=== PATIENT | male | born 1990 | race African-American/Black ===

== ENCOUNTER 2019-07-08 17:06 | Emergency (ER) | payer MEDICAID, SELFPAY ==
[~2019-07-08] VITALS: Ht 185.4 cm; Wt 117.5 kg
[2019-07-08] MEDS ORDERED: tylenol (17:16)
[2019-07-08] MEDS ORDERED: BENZOCAINE 20% GEL 9GM TUBE (ANBESOL MAX STRENGTH) TOP ONE (21:45)
[2019-07-08] MEDS ORDERED: KETOROLAC 30 MG/ML VIAL (J1885) IM ONE (21:45)
[2019-07-08] MEDS ORDERED: LIDOCAINE 2% W/ EPINEPHRINE 1.7 ML DENTAL INJ SM ONE (21:45)
[2019-07-08] MEDS ORDERED: AUGMENTIN 875 MG TAB PO ONE (21:45)
[2019-07-08] MEDS ORDERED: AUGM875T28 PO (22:15)
[2019-07-08] MEDS ORDERED: IBUP80TA PO (22:15)
[2019-07-08 22:16] VITALS: BP 139/85
== END 2019-07-08 22:27 | disposition home or self-care (01) ==
LOC: M ED 17:06
DX: K02.9 Dental caries, unspecified (principal); R68.84 Jaw pain; H92.01 Otalgia, right ear
CPT/HCPCS: 96372; 99283; J1885

== ENCOUNTER 2019-10-13 22:11 | Emergency (ER) | payer MEDICAID, OTHER, SELFPAY ==
[~2019-10-13] VITALS: Ht 185.4 cm; Wt 122.8 kg
[~2019-10-13 22:11] MED LIST: AUGM875T28 PO; IBUP80TA PO; tylenol
[2019-10-13 22:12] VITALS: BP 139/82
[2019-10-13] MEDS ORDERED: BC F1POW2 PO (22:16)
[2019-10-13] MEDS ORDERED: DEPA1TAB3 PO (22:16)
[2019-10-13] MEDS ORDERED: AUGM875T28 PO (22:38)
[2019-10-13] MEDS ORDERED: IBUPROFEN 800 MG TAB PO ONE (22:45)
[2019-10-13] MEDS ORDERED: AUGMENTIN 875 MG TAB PO ONE (22:45)
[2019-10-13] MEDS ORDERED: BENZOCAINE 20% GEL 9GM TUBE (ANBESOL MAX STRENGTH) TOP ONE (22:45)
[2019-10-13] MEDS ORDERED: ACETAMINOPHEN 500 MG TAB PO ONE (22:45)
== END 2019-10-13 22:59 | disposition home or self-care (01) ==
LOC: M ED 22:11
DX: K04.7 Periapical abscess without sinus (principal); F12.20 Cannabis dependence, uncomplicated; Z79.899 Other long term (current) drug therapy; Z79.82 Long term (current) use of aspirin

== ENCOUNTER 2020-01-16 22:41 | Inpatient (IN) | payer MEDICAID, OTHER ==
[~2020-01-16 22:41] MED LIST changes: +BC F1POW2 PO; +DEPA1TAB3 PO
[2020-01-17] MEDS ORDERED: traZODone 50 MG TAB ONE ×2 (03:35→20:30)
[2020-01-17] MEDS ORDERED: traZODone 50 MG TAB As Ordered ONE ×2 (03:35→20:30)
[2020-01-17] MEDS ORDERED: DIVALPROEX 250 MG TAB ONE ×3 (03:35→20:30)
[2020-01-17] MEDS ORDERED: PALIPERIDONE 3 MG ER TAB (INVEGA) ONE ×2 (03:35→20:30)
[2020-01-17] MEDS ORDERED: PALIPERIDONE 3 MG ER TAB (INVEGA) As Ordered ONE ×2 (08:23→20:30)
[2020-01-17] MEDS ORDERED: DIVALPROEX 250 MG TAB As Ordered ONE ×3 (08:23→20:29)
[2020-01-17] MEDS ORDERED: ACETAMINOPHEN TAB 650MG DOSE (2X325MG) As Ordered ONE (14:53)
[2020-01-17] MEDS ORDERED: ACETAMINOPHEN TAB 650MG DOSE (2X325MG) ONE (14:53)
[2020-01-18] MEDS ORDERED: PALIPERIDONE 3 MG ER TAB (INVEGA) ONE (08:23)
[2020-01-18] MEDS ORDERED: DIVALPROEX 250 MG TAB ONE ×2 (08:23→15:19)
[2020-01-18] MEDS ORDERED: PALIPERIDONE 3 MG ER TAB (INVEGA) As Ordered ONE (08:23)
[2020-01-18] MEDS ORDERED: DIVALPROEX 250 MG TAB As Ordered ONE ×2 (08:24→15:19)
[2020-03-01 13:13] LABS: BASO # 0.1 10^3/uL (0.0-0.2); EOS # 0.1 10^3/uL (0.0-0.5); EOS % 1.6 % (0.0-3.0); HEMATOCRIT 37.9 % (42.0-52.0); HEMOGLOBIN 13.1 g/dl (13.5-17.5); LYMPH # 2.4 10^3/uL (1.5-5.0); LYMPH % 38.9 % (24.0-44.0); MEAN CORPUSCULAR HEMOGLOBIN 28.7 pg (27.0-33.0); MEAN CORPUSCULAR HGB CONC 34.6 g/dl (32.0-36.5); MEAN CORPUSCULAR VOLUME 83.1 fl (80.0-96.0); MONO # 0.4 10^3/uL (0.0-0.8); MONO % 6.9 % (0.0-5.0); NEUTROPHILS # 3.1 10^3/uL (1.5-8.5); NEUTROPHILS % 51.4 % (36.0-66.0); PLATELET COUNT, AUTOMATED 289 10^3/uL (150-450); RED BLOOD COUNT 4.56 10^6/uL (4.30-6.10); WHITE BLOOD COUNT 6.1 10^3/uL (4.0-10.0)
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
[2020-04-10 12:58] LABS: ACETAMINOPHEN LEVEL < 2.0 UG/ML (10.0-30.0); ALBUMIN 4.1 GM/DL (3.2-5.2); ALT/SGPT 40 U/L (12-78); AMPHETAMINES LEVEL URINE NEGATIVE (NEGATIVE); BARBITURATES URINE NEGATIVE (NEGATIVE); BENZODIAZEPINES URINE NEGATIVE (NEGATIVE); BILIRUBIN,DIRECT 0.1 MG/DL (0.0-0.2); BILIRUBIN,TOTAL 0.5 MG/DL (0.2-1.0); BLOOD UREA NITROGEN 14 MG/DL (7-18); CALCIUM LEVEL 8.8 MG/DL (8.5-10.1); CANNABINOIDS URINE POSITIVE (NEGATIVE); CARBON DIOXIDE LEVEL 26 MEQ/L (21-32); CHLORIDE LEVEL 109 MEQ/L (98-107); COCAINE METABOLITE URINE NEGATIVE (NEGATIVE); CREATININE FOR GFR 1.14 MG/DL (0.70-1.30); ETHYL ALCOHOL (ETHANOL) < 0.003 % (0.000-0.010); GLOMERULAR FILTRATION RATE > 60.0 (>60); GLUCOSE, FASTING 94 MG/DL (70-100); METHADONE URINE NEGATIVE (NEGATIVE); OPIATES URINE NEGATIVE (NEGATIVE); PHENCYCLIDINE URINE NEGATIVE (NEGATIVE); POTASSIUM SERUM 3.9 MEQ/L (3.5-5.1); SALICYLATE LEVEL 3.3 MG/DL (5.0-30.0); SODIUM LEVEL 141 MEQ/L (136-145); TOTAL PROTEIN 7.8 GM/DL (6.4-8.2); VALPROIC ACID (DEPAKOTE) < 3.0 UG/ML (50.0-100.0)
== END 2020-01-18 14:45 | disposition home or self-care (01) | DRG 750 ==
LOC: M ED 22:41 → M PSY 23:30
PROVIDERS: ADMIT Psychiatry & Neurology Psychiatry; ATTEND Psychiatry & Neurology Psychiatry
DX: F25.9 Schizoaffective disorder, unspecified (principal); F39 Unspecified mood [affective] disorder; R45.851 Suicidal ideations; F12.10 Cannabis abuse, uncomplicated; F43.10 Post-traumatic stress disorder, unspecified

== ENCOUNTER → 2020-06-17 | Outpatient (CLI) | payer MEDICAID, OTHER ==
[2020-06-17 14:08] LABS: BASO # 0.1 10^3/uL (0.0-0.2); BASO % 1.5 % (0.0-1.0); EOS # 0.2 10^3/uL (0.0-0.5); EOS % 3.9 % (0.0-3.0); HEMATOCRIT 43.3 % (42.0-52.0); HEMOGLOBIN 14.8 g/dl (13.5-17.5); LYMPH # 2.4 10^3/uL (1.5-5.0); LYMPH % 44.3 % (24.0-44.0); MEAN CORPUSCULAR HEMOGLOBIN 29.5 pg (27.0-33.0); MEAN CORPUSCULAR HGB CONC 34.2 g/dl (32.0-36.5); MEAN CORPUSCULAR VOLUME 86.3 fl (80.0-96.0); MONO # 0.5 10^3/uL (0.0-0.8); MONO % 9.6 % (0.0-5.0); NEUTROPHILS # 2.2 10^3/uL (1.5-8.5); NEUTROPHILS % 40.5 % (36.0-66.0); PLATELET COUNT, AUTOMATED 234 10^3/uL (150-450); RED BLOOD COUNT 5.02 10^6/uL (4.30-6.10); WHITE BLOOD COUNT 5.4 10^3/uL (4.0-10.0)
[2020-06-17 14:38] LABS: ALBUMIN 4.2 GM/DL (3.2-5.2); ALT/SGPT 36 U/L (12-78); BILIRUBIN,DIRECT 0.1 MG/DL (0.0-0.2); BILIRUBIN,TOTAL 0.5 MG/DL (0.2-1.0); BLOOD UREA NITROGEN 12 MG/DL (7-18); CALCIUM LEVEL 9.6 MG/DL (8.5-10.1); CARBON DIOXIDE LEVEL 31 MEQ/L (21-32); CHLORIDE LEVEL 104 MEQ/L (98-107); CHOLESTEROL LEVEL 184 MG/DL (<200); CHOLESTEROL RISK RATIO 3.607 (<5); CREATININE FOR GFR 1.09 MG/DL (0.70-1.30); GLOMERULAR FILTRATION RATE > 60.0 (>60); GLUCOSE, FASTING 62 MG/DL (70-100); HDL CHOLESTEROL 51 MG/DL (>40); LDL CHOLESTEROL 103 MG/DL (<100); NON-HDL-C 133 MG/DL; POTASSIUM SERUM 4.7 MEQ/L (3.5-5.1); SODIUM LEVEL 139 MEQ/L (136-145); TOTAL PROTEIN 7.7 GM/DL (6.4-8.2); TRIGLYCERIDES LEVEL 149 MG/DL (<150)
[2020-06-17 14:52] LABS: HEMOGLOBIN A1c 4.9 %
== END ==
LOC: M PLALAB 11:49
PROVIDERS: ATTEND Psychiatry & Neurology Psychiatry
DX: F33.2 Major depressive disorder, recurrent severe without psychotic features (principal); F41.1 Generalized anxiety disorder; F43.10 Post-traumatic stress disorder, unspecified

== ENCOUNTER → 2020-08-27 | Outpatient (REF) | payer OTHER | LOC: M LAB REF 19:05 | PROVIDERS: ATTEND Family Medicine | DX: L08.9 Local infection of the skin and subcutaneous tissue, unspecified (principal) ==

== ENCOUNTER 2021-04-07 12:47 | Emergency (ER) | payer MEDICAID, OTHER ==
[~2021-04-07] VITALS: Ht 182.9 cm; Wt 105.0 kg
[2021-04-07 12:47] VITALS: BP 123/81
--- OUTSIDE RECORDS SUMMARY | 2021-04-07 12:54 | CCD ---
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 Name Role Phone Thomas, M Christopher PA-C Unavailable Unavailable Thomas, M Christopher PA-C Unavailable Unavailable Thomas, M Christopher PA-C Unavailable Unavailable Thomas, M Christopher PA-C Unavailable Unavailable Thomas, M Christopher PA-C Unavailable Unavailable Thomas, M Christopher PA-C Unavailable Unavailable Thomas, M Christopher PA-C Unavailable Unavailable Thomas, M Christopher PA-C Unavailable Unavailable Thomas, M Christopher PA-C Unavailable Unavailable Thomas, M Christopher PA-C Unavailable Unavailable Thomas, M Christopher PA-C Unavailable Unavailable Thomas, M Christopher PA-C Unavailable Unavailable Thomas, M Christopher PA-C Unavailable Unavailable Thomas, M Christopher PA-C Unavailable Unavailable Thomas, M Christopher PA-C Unavailable Unavailable Thomas, M Christopher PA-C Unavailable Unavailable Thomas, M Christopher PA-C Unavailable Unavailable Thomas, M Christopher PA-C Unavailable Unavailable Thomas, M Christopher PA-C Unavailable Unavailable Thomas, M Christopher PA-C Unavailable Unavailable Thomas, M Christopher PA-C Unavailable Unavailable Thomas, M Christopher PA-C Unavailable Unavailable Thomas, M Christopher PA-C Unavailable Unavailable Thomas, M Christopher PA-C Unavailable Unavailable Thomas, M Christopher PA-C Unavailable Unavailable Thomas, M Christopher PA-C Unavailable Unavailable Re-disclosure Warning The records that you are about to access may contain information from federally-assisted alcohol or drug abuse programs. If such information is present, then the following federally mandated warning applies: This information has been disclosed to you from records protected by federal confidentiality rules (42 CFR part 2). The federal rules prohibit you from making any further disclosure of this information unless further disclosure is expressly permitted by the written consent of the person to whom it pertains or as otherwise permitted by 42 CFR part 2. A general authorization for the release of medical or other information is NOT sufficient for this purpose. The Federal rules restrict any use of the information to criminally investigate or prosecute any alcohol or drug abuse patient.The records that you are about to access may contain highly sensitive health information, the redisclosure of which is protected by Article 27-F of the [facility] Public Health law. If you continue you may have access to information: Regarding HIV / AIDS; Provided by facilities licensed or operated by the [facility] Office of Mental Health; or Provided by the [facility] Office for People With Developmental Disabilities. If such information is present, then the following [facility] mandated warning applies: This information has been disclosed to you from confidential records which are protected by state law. State law prohibits you from making any further disclosure of this information without the specific written consent of the person to whom it pertains, or as otherwise permitted by law. Any unauthorized further disclosure in violation of state law may result in a fine or nursing home sentence or both. A general authorization for the release of medical or other information is NOT sufficient authorization for further disc losure. Encounters Encounter Providers Location Date Indications Data Source(s ) Outpatient 01/25/2021 03:59:37 PM EDT - 021 04:15:28 PM EDT [facility] ([facility]) [place] [address] [address] 10/07/2020 12:00:00 AM EDT eCW1 ([facility]) Outpatient Attender: Benjamin Thomas PA-C 09/17/2020 12:20:51 PM EDT - 09/17/2020 12:27:42 PM EDT [facility] ([facility]) [place] [address] [address] 09/16/2020 12:00:00 AM EDT eCW1 ([facility]) [place] [address] [address] 08/26/2020 12:00:00 AM EDT eCW1 ([facility]) [place] [address] [address] 07/20/2020 12:00:00 AM EST eCW1 ([facility]) [place] [address] [address] 03/11/2020 12:00:00 AM EDT eCW1 ([facility]) Immunizations Vaccine Date Status Description Data Source(s) COVID-19 VACCINE Pfizer 12/03/2020 12:00:00 AM EDT completed [facility] Vaccine Series Complete: YESThis Data wa s Submitted to [facility] Via [facility]. COVID-19 VACCINE Pfizer 11/12/2020 12:00:00 AM EDT completed [facility] Vaccine Series Complete: NOThis Data was Submitted to [facility]. Medications Medication Brand Name Start Date Product Form Dose Route Admi nistrative Instructions Pharmacy Instructions Status Indications Reaction Description Data Source(s) 250 mg 08/12/2020 12:00:00 AM EST tablet,delayed release (DR/EC) 90 TAKE ONE TABLET BY MOUTH THREE TIMES A DAY TAKE ONE TABLET BY MOUTH THREE TIMES A DAY SOLD: 08/18/2020 [facility] quetiapine 50 MG Oral Tablet QUETIAPINE FUMARATE 08/12/2020 12:0 0:00 AM EST tablet 30 TAKE ONE TABLET BY MOUTH EVERY D AY TAKE ONE TABLET BY MOUTH EVERY DAY SOLD: 08/18/2020 [facility] 50 mg 08/12/2020 12:00:00 AM EST tablet 30 TAKE ONE TABLET BY MOUTH EVERY DAY TAKE ONE TABLET BY MOUTH EVERY DAY SOLD: 10/10/2020 [facility] quetiapine 50 MG Oral Tablet QUETIAPINE FUMARATE 08/12/2020 12:0 0:00 AM EST tablet 30 TAKE ONE TABLET BY MOUTH EVERY D AY TAKE ONE TABLET BY MOUTH EVERY DAY SOLD: 10/10/2020 [facility] 50 mg 08/12/2020 12:00:00 AM EST tablet 30 TAKE ONE TABLET BY MOUTH EVERY DAY TAKE ONE TABLET BY MOUTH EVERY DAY SOLD: 08/18/2020 [facility] 250 mg 08/12/2020 12:00:00 AM EST tablet,delayed release (DR/EC) 90 TAKE ONE TABLET BY MOUTH THREE TIMES A DAY TAKE ONE TABLET BY MOUTH THREE TIMES A DAY SOLD: 10/10/2020 [facility] 5-325 mg 05/11/2020 12:00:00 AM EST tablet 12 TAKE ONE TABLET BY MOUTH EVERY 6 HOURS NEEDED FOR PAIN MAXIMUM DAILY DOSE = 4 TABLETS TAKE ONE TABLET BY MOUTH EVERY 6 HOURS NEEDED FOR PAIN MAXIMUM DAILY DOSE = 4 TABLETS SOLD: 05/11/2020 [facility] 800 mg 05/11/2020 12:00:00 AM EST tablet 20 TAKE ONE TABLET BY MOUTH EVERY 6 HOURS NEEDED FOR PAIN TAKE ONE TABLET BY MOUTH EVERY 6 HOURS A S NEEDED FOR PAIN SOLD: 05/11/2020 [facility] 5-325 mg 05/07/2020 12:00:00 AM EST tablet 16 TAKE ONE TABLET BY MOUTH EVERY 6 HOURS NEEDED FOR PAIN MAXIMUM DAILY DOSE = 4 TABLETS TAKE ONE TABLET BY MOUTH EVERY 6 HOURS NEEDED FOR PAIN MAXIMUM DAILY DOSE = 4 TABLETS SOLD: 05/07/2020 [facility] 500 mg 05/07/2020 12:00:00 AM EST tablet 21 TAKE ONE TABLET BY MOUTH EVERY 8 HOURS UNTIL GONE TAKE ONE TABLET BY MOUTH EVERY 8 HOURS UNTIL GONE SOLD : 05/07/2020 [facility] 0.12 % 05/07/2020 12:00:00 AM EST mouthwash 473 RINSE MOUTH WITH 15MLS FOR 30 SECONDS THEN SPIT OUT FOUR TIMES A DAY RINSE MOUTH WITH 15MLS FOR 30 SECONDS THEN SPIT OUT FOUR TIMES A DAY SOLD: 05/07/2020 [facility] Sertraline 50 MG Oral Tablet SERTRALINE HCL 04/16/2020 12:00:00 AM EST tablet 30 TAKE ONE TABLET BY MOUTH EVERY DAY TAKE ONE TABL ET BY MOUTH EVERY DAY SOLD: 04/16/2020 [facility] 800 mg 02/27/2020 12:00:00 AM EDT tablet 20 TAKE ONE TABLET BY MOUTH EVERY 6 HOURS NEEDED FOR PAIN TAKE ONE TABLET BY MOUTH EVERY 6 HOURS A S NEEDED FOR PAIN SOLD: 02/27/2020 [facility] 5-325 mg 02/27/2020 12:00:00 AM EDT tablet 16 TAKE ONE TABLET BY MOUTH EVERY 6 HOURS NEEDED FOR PAIN MAXIMUM DAILY DOSE = 4 TABLETS TAKE ONE TABLET BY MOUTH EVERY 6 HOURS NEEDED FOR PAIN MAXIMUM DAILY DOSE = 4 TABLETS SOLD: 02/27/2020 [facility] 0.12 % 02/27/2020 12:00:00 AM EDT mouthwash 473 SWISH 15 MLS IN MOUTH FOR 30 SECONDS AND SPIT FOUR TIMES A DAY SWISH 15 MLS IN MOUTH FOR 30 SECONDS AND SPIT FOUR TIMES A DAY SOLD: 02/27/2020 [facility] 250 mg 02/20/2020 12:00:00 AM EDT tablet,delayed release (DR/EC) 90 TAKE ONE TABLET BY MOUTH THREE TIMES A DAY TAKE ONE TABLET BY MOUTH THREE TIMES A DAY SOLD: 02/25/2020 [facility] quetiapine 50 MG Oral Tablet QUETIAPINE FUMARATE 02/20/2020 12:0 0:00 AM EDT tablet 60 TAKE ONE TABLET BY MOUTH TWICE A DAY TAKE ONE TABLET BY MOUTH TWICE A DAY SOLD: 03/23/2020 [facility] 50 mg 02/20/2020 12:00:00 AM EDT tablet 30 TAKE ONE TABLET BY MOUTH EVERY DAY TAKE ONE TABLET BY MOUTH EVERY DAY SOLD: 06/03/2020 [facility] 250 mg 02/20/2020 12:00:00 AM EDT tablet,delayed release (DR/EC) 90 TAKE ONE TABLET BY MOUTH THREE TIMES A DAY TAKE ONE TABLET BY MOUTH THREE TIMES A DAY SOLD: 06/03/2020 [facility] 50 mg 02/20/2020 12:00:00 AM EDT tablet 30 TAKE ONE TABLET BY MOUTH EVERY DAY TAKE ONE TABLET BY MOUTH EVERY DAY SOLD: 02/25/2020 [facility] 250 mg 02/20/2020 12:00:00 AM EDT tablet,delayed release (DR/EC) 90 TAKE ONE TABLET BY MOUTH THREE TIMES A DAY TAKE ONE TABLET BY MOUTH THREE TIMES A DAY SOLD: 03/23/2020 [facility] quetiapine 50 MG Oral Tablet QUETIAPINE FUMARATE 02/20/2020 12:0 0:00 AM EDT tablet 60 TAKE ONE TABLET BY MOUTH TWICE A DAY TAKE ONE TABLET BY MOUTH TWICE A DAY SOLD: 06/03/2020 [facility] 50 mg 02/20/2020 12:00:00 AM EDT tablet 30 TAKE ONE TABLET BY MOUTH EVERY DAY TAKE ONE TABLET BY MOUTH EVERY DAY SOLD: 03/23/2020 [facility] quetiapine 50 MG Oral Tablet QUETIAPINE FUMARATE 02/20/2020 12:0 0:00 AM EDT tablet 60 TAKE ONE TABLET BY MOUTH TWICE A DAY TAKE ONE TABLET BY MOUTH TWICE A DAY SOLD: 02/25/2020 [facility] Insurance Providers Payer name Policy type / Coverage type Policy ID Covered democrat ID Covered democrat's relationship to bernstein Policy [employer] Plan Information Managed Care Darius P [id number] S [id number] ESCREEN [employer]OUNT emp [id number] Employee [id number] [employer] [id number] Self [id number] Medicaid P UNAVAILABLE S UNAVAILA BLE Medicaid Dental S UNAVAILABLE S UN AVAILABLE Medicaid Dental S [id number] S [id number] Managed Care Darius P [id number] S [id number] Medicaid S [id number] S [id number] MEDICAID [id number] SP [id number] SELF PAY ONLY [id number] SP [id number] DARIUS [id number] SP [id number] EMEDNY [id number] SP [id number] Problems, Conditions, and Diagnoses No Information Surgeries/Procedures Procedure Description Date Indications Data Source(s) Med: Derm 1% Lidocaine with Epinephrine Injection Intr adermally to marked areas 08/26/2020 12:00:00 AM EDT eCW1 ([facility]) Results ID Date Data Source [id number] 01/25/2021 04:15:00 PM EDT JUAN FMT Name Value Range Interpretation Code Description Data Elvia rce(s) Supporting Document(s) SARS-CoV-2 RNA Resp Ql TIAN+probe NOT DETECTED [facility] This lab was ordered by SU dangelo and reported by SU Colin. Procedure Social History Code Duration Value Status Description Data Source(s ) Smoking 09/14/2020 12:00:00 AM EDT Never Smoker completed Never S moker eCW1 ([facility]) Smoking 09/14/2020 12:00:00 AM EDT Never Smoker completed Never S moker eCW1 ([facility]) Smoking 09/14/2020 12:00:00 AM EDT Never Smoker completed Never S moker eCW1 ([facility]) Smoking 07/20/2020 12:00:00 AM EST Never Smoker completed Never S moker eCW1 ([facility]) Vital Signs ID Date Data Source UNK Name Value Range Interpretation Code Description Data Source(s) Body weight 233.4 [lb_av] 233.4 [lb_av] eCW1 ([facility]) Body height 72 [in_i] 72 [in_i] eCW1 ([facility]) Body mass index (BMI) [Ratio] 31.65 kg/m2 31.65 kg/m2 eCW1 ([facility]) Respiratory rate 18 /min 18 /min eCW1 ([facility]) Body temperature 97.9 [degF] 97.9 [degF] eCW1 ( [facility]) Systolic blood pressure 122 mm[Hg] 122 mm[Hg] e CW1 ([facility]) Diastolic blood pressure 82 mm[Hg] 82 mm[Hg] eCW1 ([facility]) Heart rate 84 /min 84 /min eCW1 ([facility]) Body weight 231.0 [lb_av] 231.0 [lb_av] eCW1 ([facility]) Body height 72 [in_i] 72 [in_i] eCW1 ([facility]) Body mass index (BMI) [Ratio] 31.33 kg/m2 31.33 kg/m2 eCW1 ([facility]) Heart rate 80 /min 80 /min eCW1 ([facility]) Respiratory rate 18 /min 18 /min eCW1 ([facility]) Body temperature 97.7 [degF] 97.7 [degF] eCW1 ( [facility]) Systolic blood pressure 122 mm[Hg] 122 mm[Hg] e CW1 ([facility]) Diastolic blood pressure 78 mm[Hg] 78 mm[Hg] eCW1 ([facility]) Body weight 237 [lb_av] 237 [lb_av] eCW1 ([facility]) Body height 72 [in_i] 72 [in_i] eCW1 ([facility]) Body mass index (BMI) [Ratio] 32.14 kg/m2 32.14 kg/m2 eCW1 ([facility]) Heart rate 87 /min 87 /min eCW1 ([facility]) Respiratory rate 18 /min 18 /min eCW1 ([facility]) Body temperature 97.7 [degF] 97.7 [degF] eCW1 ( [facility]) Systolic blood pressure 128 mm[Hg] 128 mm[Hg] e CW1 ([facility]) Diastolic blood pressure 84 mm[Hg] 84 mm[Hg] eCW1 ([facility])
--- OUTSIDE RECORDS SUMMARY | 2021-04-07 13:41 | CCD ---
Author Author [facility] Organization [facility] Address Unknown Phone Unavailable Care Team Providers Care Investigative Writer Name Role Phone Thomas, M Christopher PA-C [...] is protected by Article 27-F of the [facility] Public Health law. If you continue you may have access to information: Regarding HIV / AIDS; Provided by facilities licensed or operated by the [facility] Office of Mental Health; or Provided by the [facility] Office for People With Developmental Disabilities. If such information is present, then the following [facility] mandated warning applies: This information has [...] law may result in a fine or mcc sentence or both. A general authorization for the release of medical or other information is NOT sufficient authorization for further disc losure. Encounters Encounter Providers Location Date Indications Data Source(s ) Outpatient 01/25/2021 03:59:37 PM EDT - 021 04:15:28 PM EDT [facility] ([facility]) Unknown [address] [place] [address] 10/07/2020 12:00:00 AM EDT eCW1 ([facility]) Outpatient Attender: Benjamin Thomas PA-C 09/17/2020 12:20:51 PM EDT - 09/17/2020 12:27:42 PM EDT [facility] ([facility]) Outpatient [address] [address] [address] 09/16/2020 12:00:00 AM EDT eCW1 ([facility]) Outpatient [address] [facility] [address] [address] 08/26/2020 12:00:00 AM EDT eCW1 ([facility]) Outpatient [address] [facility] [address] [address] 07/20/2020 12:00:00 AM EST eCW1 ([facility]) Unknown [address] [address] [address] 03/11/2020 12:00:00 AM EDT eCW1 ([facility]) Immunizations Vaccine Date Status Description Data Source(s) COVID-19 VACCINE Pfizer 12/03/2020 12:00:00 AM EDT completed [facility] Vaccine Series Complete: YESThis Data wa s Submitted to [facility] Via [employer]. COVID-19 VACCINE Pfizer 11/12/2020 12:00:00 AM EDT completed [facility] Vaccine Series Complete: NOThis Data was Submitted to [facility] [employer]. Medications Medication Brand Name Start Date Product [...] type / Coverage type Policy ID Covered constitution party ID Covered constitution party's relationship to bernstein Policy Bernstein Plan Information Managed Care Darius P [id number] S [id number] ES[employer] emp [id number] Employee [id number] [employer] [id number] Self [id number] Medicaid P UNAVAILABLE S UNAVAILA BLE Medicaid Dental S UNAVAILABLE S UN AVAILABLE Medicaid Dental S [id number] S [id number] Managed Care Darius P [id number] S [id number] Medicaid S [id number] S [id number] MEDICAID [id number] SP [id number] SELF PAY ONLY [id number] SP [id number] DARIUS [id number] SP [id number] EMEDNY [id number] SP [id number] Problems, Conditions, and Diagnoses No Information Surgeries/Procedures Procedure Description Date Indications Data Source(s) Med: Derm 1% Lidocaine with Epinephrine Injection Intr adermally to marked areas 08/26/2020 12:00:00 AM EDT eCW1 ([facility]) Results ID Date Data Source [id number] 01/25/2021 04:15:00 PM EDT JUAN FVA Name Value Range Interpretation Code Description Data Elvia rce(s) Supporting Document(s) SARS-CoV-2 RNA Resp Ql TIAN+probe NOT DETECTED [facility] This lab was ordered by SU dangelo and reported by SU Colin. Procedure Social History Code Duration Value Status Description Data Source(s ) Smoking 09/14/2020 12:00:00 AM EDT Never Smoker completed Never S moker eCW1 ([facility]) Smoking 09/14/2020 12:00:00 AM EDT Never Smoker completed Never S moker eCW1 ([facility]) Smoking 09/14/2020 12:00:00 AM EDT Never Smoker completed Never S moker eCW1 ([facility]) Smoking 07/20/2020 12:00:00 AM EST Never Smoker completed Never S moker eCW1 ([facility]) Vital Signs ID Date Data Source UNK Name Value Range Interpretation Code Description Data Source(s) Body weight 233.4 [lb_av] 233.4 [lb_av] eCW1 ([facility]) Body height 72 [in_i] 72 [in_i] eCW1 ([facility]) Body mass index (BMI) [Ratio] 31.65 kg/m2 31.65 kg/m2 eCW1 ([facility]) Respiratory rate 18 /min 18 /min eCW1 ([facility]) Body temperature 97.9 [degF] 97.9 [degF] eCW1 ( [facility]) Systolic blood pressure 122 mm[Hg] 122 mm[Hg] e CW1 ([facility]) Diastolic blood pressure 82 mm[Hg] 82 mm[Hg] eCW1 ([facility]) Heart rate 84 /min 84 /min eCW1 ([facility]) Body weight 231.0 [lb_av] 231.0 [lb_av] eCW1 ([facility]) Body height 72 [in_i] 72 [in_i] eCW1 ([facility]) Body mass index (BMI) [Ratio] 31.33 kg/m2 31.33 kg/m2 eCW1 ([facility]) Heart rate 80 /min 80 /min eCW1 ([facility]) Respiratory rate 18 /min 18 /min eCW1 ([facility]) Body temperature 97.7 [degF] 97.7 [degF] eCW1 ( [facility]) Systolic blood pressure 122 mm[Hg] 122 mm[Hg] e CW1 ([facility]) Diastolic blood pressure 78 mm[Hg] 78 mm[Hg] eCW1 ([facility]) Body weight 237 [lb_av] 237 [lb_av] eCW1 ([facility]) Body height 72 [in_i] 72 [in_i] eCW1 ([facility]) Body mass index (BMI) [Ratio] 32.14 kg/m2 32.14 kg/m2 eCW1 ([facility]) Heart rate 87 /min 87 /min eCW1 ([facility]) Respiratory rate 18 /min 18 /min eCW1 ([facility]) Body temperature 97.7 [degF] 97.7 [degF] eCW1 ( [facility]) Systolic blood pressure 128 mm[Hg] 128 mm[Hg] e CW1 ([facility]) Diastolic blood pressure 84 mm[Hg] 84 mm[Hg] eCW1 ([facility])
[2021-04-07 14:35] LABS: VALPROIC ACID (DEPAKOTE) < 3.0 UG/ML (50.0-100.0)
[2021-04-07 14:48] LABS: AMPHETAMINES LEVEL URINE NEGATIVE (NEGATIVE); BARBITURATES URINE NEGATIVE (NEGATIVE); BENZODIAZEPINES URINE NEGATIVE (NEGATIVE); CANNABINOIDS URINE POSITIVE (NEGATIVE); COCAINE METABOLITE URINE NEGATIVE (NEGATIVE); METHADONE URINE NEGATIVE (NEGATIVE); OPIATES URINE NEGATIVE (NEGATIVE); PHENCYCLIDINE URINE NEGATIVE (NEGATIVE)
[2021-04-07 15:05] LABS: HEMATOCRIT 42.7 % (42.0-52.0); HEMOGLOBIN 14.6 g/dl (13.5-17.5); MEAN CORPUSCULAR HEMOGLOBIN 30.1 pg (27.0-33.0); MEAN CORPUSCULAR HGB CONC 34.2 g/dl (32.0-36.5); PLATELET COUNT, AUTOMATED 284 10^3/uL (150-450); RED BLOOD COUNT 4.85 10^6/uL (4.30-6.10); WHITE BLOOD COUNT 5.9 10^3/uL (4.0-10.0)
[2021-04-07 15:20] LABS: ACETAMINOPHEN LEVEL < 2.0 UG/ML (10.0-30.0); ALT/SGPT 33 U/L (12-78); BILIRUBIN,DIRECT 0.2 MG/DL (0.0-0.2); BILIRUBIN,TOTAL 0.5 MG/DL (0.2-1.0); BLOOD UREA NITROGEN 12 MG/DL (7-18); CALCIUM LEVEL 9.8 MG/DL (8.5-10.1); CARBON DIOXIDE LEVEL 27 MEQ/L (21-32); CHLORIDE LEVEL 105 MEQ/L (98-107); CREATININE FOR GFR 1.16 MG/DL (0.70-1.30); ETHYL ALCOHOL (ETHANOL) < 0.003 % (0.000-0.010); GLOMERULAR FILTRATION RATE > 60.0 (>60); GLUCOSE, FASTING 83 MG/DL (70-100); POTASSIUM SERUM 4.5 MEQ/L (3.5-5.1); SALICYLATE LEVEL 4.8 MG/DL (5.0-30.0); SODIUM LEVEL 139 MEQ/L (136-145); TOTAL PROTEIN 7.6 GM/DL (6.4-8.2)
== END 2021-04-07 15:52 | disposition home or self-care (01) ==
LOC: M ED 12:47
DX: Z73.3 Stress, not elsewhere classified (principal); F43.10 Post-traumatic stress disorder, unspecified; F33.9 Major depressive disorder, recurrent, unspecified; F17.200 Nicotine dependence, unspecified, uncomplicated; Z79.899 Other long term (current) drug therapy

== ENCOUNTER 2021-08-25 07:07 | Emergency (ER) | payer OTHER ==
[~2021-08-25] VITALS: Ht 185.4 cm; Wt 101.8 kg
[2021-08-25 07:08] VITALS: BP 168/81
[2021-08-25 08:05] LABS: RSV AMPLIFICATION NEGATIVE (NEGATIVE)
== END 2021-08-25 08:31 | disposition home or self-care (01) ==
LOC: M ED 07:07
DX: U07.1 COVID-19 (principal); F41.8 Other specified anxiety disorders; F32.A Depression, unspecified

== ENCOUNTER 2022-01-02 08:13 | Emergency (ER) | payer OTHER ==
[~2022-01-02] VITALS: Ht 185.4 cm; Wt 96.2 kg
[2022-01-02 08:14] VITALS: BP 128/61
[2022-01-02 09:05] LABS: HEMATOCRIT 43.4 % (42.0-52.0); MEAN CORPUSCULAR HEMOGLOBIN 30.2 pg (27.0-33.0); MEAN CORPUSCULAR HGB CONC 34.6 g/dl (32.0-36.5); MEAN CORPUSCULAR VOLUME 87.5 fl (80.0-96.0); PLATELET COUNT, AUTOMATED 250 10^3/uL (150-450); RED BLOOD COUNT 4.96 10^6/uL (4.30-6.10)
[2022-01-02 09:29] LABS: ACETAMINOPHEN LEVEL < 2.0 UG/ML (10.0-30.0); ALT/SGPT 29 U/L (12-78); BILIRUBIN,DIRECT 0.2 MG/DL (0.0-0.2); BILIRUBIN,TOTAL 0.5 MG/DL (0.2-1.0); BLOOD UREA NITROGEN 9 MG/DL (7-18); CALCIUM LEVEL 9.6 MG/DL (8.5-10.1); CARBON DIOXIDE LEVEL 27 MEQ/L (21-32); CHLORIDE LEVEL 108 MEQ/L (98-107); CREATININE FOR GFR 1.08 MG/DL (0.70-1.30); ETHYL ALCOHOL (ETHANOL) < 0.003 % (0.000-0.010); GLOMERULAR FILTRATION RATE > 60.0 (>60); GLUCOSE, FASTING 92 MG/DL (70-100); POTASSIUM SERUM 4.5 MEQ/L (3.5-5.1); SALICYLATE LEVEL 4.6 MG/DL (5.0-30.0); SODIUM LEVEL 140 MEQ/L (136-145); THYROID STIMULATING HORMONE 0.932 uIU/ML (0.358-3.740); TOTAL PROTEIN 7.7 GM/DL (6.4-8.2)
[2022-01-02] MEDS ORDERED: LEXA1TAB PO (09:35)
== END 2022-01-02 09:48 | disposition home or self-care (01) ==
LOC: M ED 08:13
DX: F43.0 Acute stress reaction (principal); F41.9 Anxiety disorder, unspecified; Z79.899 Other long term (current) drug therapy